=== PATIENT | male | born 1955 | race Caucasian/White ===

== ENCOUNTER → 2016-05-22 | Outpatient (CLI) | payer BC ==
[~2016-05-22] MED LIST: ASPI81TA21 PO; CHOL20005 PO; CLR10 PO; CRS20 PO; FINA5TAB PO; LOSA1TAB PO; METO25TA56 PO; NTRGSL/4 SL; NTRGSL/4 UT; PANT40TA PO; PRT40 PO
--- NOTE | 2016-05-22 10:29 | DIAGNOSTIC IMAGING REPORT ---
CHEST 2 VIEWS ROUTINE CLINICAL HISTORY: J20.9 Acute bronchitis with [id number] COMPARISON STUDY: 02/28/2016 FINDINGS: The cardiac and mediastinal contours are normal. There is no evidence of focal pulmonary consolidation. There is no evidence of failure. No pleural effusions are visualized.[ IMPRESSION: No active disease in the chest. Electronically signed by: Truman Roth M.D. 05/22/2016 10:27 AM Dictated Date/Time: 05/22/2016 10:22 AM
[2016-05-22 11:25] LABS: ALT/SGPT 43 U/L (12-78); AST/SGOT 29 U/L (15-37); BLOOD UREA NITROGEN 17 mg/dl (7-18); BUN/CREATININE RATIO 16.9 (10-20); CALCIUM 9.1 mg/dl (8.5-10.1); CARBON DIOXIDE 28 mmol/L (21-32); CHLORIDE 104 mmol/L (98-107); CHOLESTEROL 148 mg/dl (0-200); GLUCOSE 116 mg/dl (70-99); POTASSIUM 4.1 mmol/L (3.5-5.1); SODIUM 138 mmol/L (136-145); TRIGLYCERIDES 180 mg/dl (0-150); VERY LOW DENSITY LIPOPROT CALC 36 mg/dl
[2016-05-22 11:26] LABS: ALKALINE PHOSPHATASE 73 U/L (45-117); CHOLESTEROL/HDL RATIO 3.6; HDL CHOLESTEROL 41 mg/dl; LDL CHOLESTEROL CALCULATED 71 mg/dl
[2016-05-22 11:54] LABS: ESTIMATED AVERAGE GLUCOSE 123 mg/dl; HA1C FLAG Normal (Normal)
== END | disposition home or self-care (01) ==
LOC: C.RAD1850 10:08
PROVIDERS: ATTEND Family Medicine
DX: J20.9 Acute bronchitis, unspecified (principal); I10 Essential (primary) hypertension; E78.5 Hyperlipidemia, unspecified; R73.01 Impaired fasting glucose; E55.9 Vitamin D deficiency, unspecified

== ENCOUNTER → 2016-10-09 | Outpatient (CLI) | payer BC ==
[2016-10-09 11:57] LABS: BASO % 0.6 %; BASO ABS # 0.05 K/uL (0-0.2); COMPLETE YES; HEMATOCRIT 43.3 % (42-52); IG% 0.2 %; LYMPH ABS # 1.59 K/uL (1.2-3.4); MEAN CELL VOLUME 87.5 fL (80-100); MEAN CORPUSCULAR HEMOGLOBIN 29.9 pg (25-34); MEAN CORPUSCULAR HGB CONC 34.2 g/dl (32-36); MEAN PLATELET VOLUME 9.9 fL (7.4-10.4); MONO % 7.6 %; NEUT % 69.6 %; PLATELET COUNT 258 K/uL (130-400); RED BLOOD COUNT 4.95 M/uL (4.7-6.1); WHITE BLOOD COUNT 8.84 K/uL (4.8-10.8)
== END | disposition home or self-care (01) ==
LOC: C.LAB1850 11:04
PROVIDERS: ATTEND Family Medicine
DX: R22.30 Localized swelling, mass and lump, unspecified upper limb (principal)

== ENCOUNTER → 2016-10-12 | Outpatient (CLI) | payer BC ==
--- NOTE | 2016-10-12 08:13 | DIAGNOSTIC IMAGING REPORT ---
LEFT AXILLARY ULTRASOUND CLINICAL HISTORY: Left axillary palpable lump. COMPARISON STUDY: No previous studies for comparison. FINDINGS: Sonography of the left axilla revealed an ill-defined mixed echogenicity subcutaneous abnormality that measures 1.3 x 0.6 x 1.2 cm. This contained a 4 mm peripherally echogenic focus with shadowing consistent with calcification. No additional abnormalities were identified within the left axilla. IMPRESSION: 1.3 cm subcutaneous abnormality of the left axilla which contains a calcification which represents the palpable lump. This is not suggestive of a lipoma or lymph node. A benign etiology is favored but clinical follow-up to ensure stability is recommended. Electronically signed by: Jasvir Sandoval M.D. 10/12/2016 8:12 AM Dictated Date/Time: 10/12/2016 8:06 AM
== END | disposition home or self-care (01) ==
LOC: C.ULTR 07:38
PROVIDERS: ATTEND Family Medicine
DX: R22.30 Localized swelling, mass and lump, unspecified upper limb (principal)

== ENCOUNTER → 2016-11-21 | Outpatient (CLI) | payer BC ==
[2016-11-21 12:18] LABS: HEMATOCRIT 41.9 % (42-52); MEAN CELL VOLUME 86.7 fL (80-100); MEAN CORPUSCULAR HGB CONC 34.6 g/dl (32-36); MEAN PLATELET VOLUME 10.7 fL (7.4-10.4); PLATELET COUNT 172 K/uL (130-400); RED BLOOD COUNT 4.83 M/uL (4.7-6.1); WHITE BLOOD COUNT 9.61 K/uL (4.8-10.8)
[2016-11-21 12:41] LABS: ESTIMATED AVERAGE GLUCOSE 123 mg/dl; HA1C FLAG Normal (Normal)
[2016-11-21 13:01] LABS: ALT/SGPT 40 U/L (12-78); AST/SGOT 31 U/L (15-37); BLOOD UREA NITROGEN 13 mg/dl (7-18); CARBON DIOXIDE 27 mmol/L (21-32); CHLORIDE 106 mmol/L (98-107); CHOLESTEROL 128 mg/dl (0-200); CREATININE 0.96 mg/dl (0.60-1.40); GLUCOSE 94 mg/dl (70-99); POTASSIUM 4.4 mmol/L (3.5-5.1); SODIUM 138 mmol/L (136-145); TRIGLYCERIDES 98 mg/dl (0-150); VERY LOW DENSITY LIPOPROT CALC 20 mg/dl
[2016-11-21 13:07] LABS: ALKALINE PHOSPHATASE 65 U/L (45-117); CHOLESTEROL/HDL RATIO 3.7; HDL CHOLESTEROL 35 mg/dl; LDL CHOLESTEROL CALCULATED 73 mg/dl; PROSTATE SPECIFIC ANTIGEN 0.798 ng/ml (0.000-4.000)
== END | disposition home or self-care (01) ==
LOC: C.LAB1850 11:10
PROVIDERS: ATTEND Family Medicine
DX: I10 Essential (primary) hypertension (principal); E78.5 Hyperlipidemia, unspecified; I25.10 Atherosclerotic heart disease of native coronary artery without angina pectoris; R73.01 Impaired fasting glucose; E55.9 Vitamin D deficiency, unspecified; Z12.5 Encounter for screening for malignant neoplasm of prostate

== ENCOUNTER → 2016-12-06 | Day surgery (SDC) | payer BC ==
[2016-11-28 15:22] VITALS: Ht 177.8 cm; Wt 102.3 kg
[~2016-12-06] VITALS: Ht 177.8 cm; Wt 102.3 kg
[~2016-12-06] MED LIST changes: +ATROPINE SULFATE 0.1 MG/ML 5ML SYR IV PRN; +BUPIVACAINE/EPINEPHRINE 0.5% MPF 1:200,000 10 ML VIAL ONE; +CEFAZOLIN 2000 MG/60 ML D5W IV SCH; +DEXAMETHASONE SOD INJ 4 MG/ML VIAL ONE; +EpHEDrine SULFATE INJ 50 MG/ML AMP IV PRN; +FENTANYL CITRATE INJ 50 MCG/1 ML 2 ML VIAL IV PRN; +FENTANYL CITRATE INJ 50 MCG/1 ML 2 ML VIAL ONE; +HYDROCODONE/ACETAMOPHEN 5/325MG TAB PO PRN; +LACTATED RINGER'S 1000ML 1,000 ML IV SCH; +LIDOCAINE HCL 2% 2 ML VIAL (20MG/ML) ONE; +MIDAZOLAM HCL 1 MG/ML 2ML VIAL ONE; -NTRGSL/4 SL; +ONDANSETRON INJ 2 MG/ML 2 ML VIAL IV PRN; +ONDANSETRON INJ 2 MG/ML 2 ML VIAL ONE; +PROPOFOL IV EMULSION 10 MG/ML 20 ML VIAL IV ONE; -PRT40 PO; +SODIUM CHLORIDE 0.9% 1000ML 1,000 ML IV SCH
[2016-12-06 05:49] VITALS: BP 135/78; PULSE 52; TEMP 36.5; O2SAT 95
--- NOTE | 2016-12-06 06:56 | History & Physical Bridge Note ---
H&P Re-Evaluation Bridge Note: I have examined the patient, reviewed the History & Physical and in the interval since the performance of the History & Physical I have noted the following changes of clinical significance: No changes noted
--- NOTE | 2016-12-06 07:41 | Discharge Instructions ---
Discharge Instructions Date of Service Dec 06, 2016. Admission Reason for Admission: Left Axillary Lump Discharge Discharge Diagnosis / Problem: Left Axillary Lump Discharge Goals Goal(s): Decrease discomfort, Improve function Activity Recommendations Activity Limitations: as noted below Lifting Limitations: no more than 10 pounds Exercise/Sports Limitations: until after follow-up appointment May Resume Sexual Activity: after follow-up appointment Shower/Bathe: tomorrow . Instructions / Follow-Up Instructions / Follow-Up Please follow-up with Dr. Watson in the office in 1-2 weeks. Please call the office at [phone] to make an appointment if you do not have one already. Please call the office at [phone] with any questions or concerns. Current Hospital Diet Patient's current hospital diet: Discharge Diet Recommended Diet: Regular Diet Procedures Procedures Performed: Excision of Left Axilla Lump Pending Studies Studies pending at discharge: yes List of pending studies: Pathology report. Laboratory Results Hemoglobin A1c Test 11/21/16 11:11 Range/Units Estimated Average Glucose 123 mg/dl Hemoglobin A1c 5.9 H 4.5-5.6 % Lipid Panel Test 11/21/16 11:11 Range/Units Triglycerides Level 98 0-150 mg/dl Cholesterol Level 128 0-200 mg/dl HDL Cholesterol 35 mg/dl Cholesterol/HDL Ratio 3.7 LDL Cholesterol, Calculated 73 mg/dl Medical Emergencies . Who to Call and When: Medical Emergencies: If at any time you feel your situation is an emergency, please call 911 immediately. . Non-Emergent Contact Non-Emergency issues call your: Primary Care Provider, Surgeon Call Non-Emergent contact if: temperature is above 101.5, your pain is not controlled, wound has increased drainage, wound has increased redness . "Provider Documentation" section prepared by Maura Yousif. . VTE Core Measure Inpt VTE Proph given/why not?: SCD's
--- NOTE | 2016-12-06 07:52 | [facility] Operative Report ---
Operative Report Operative Date Dec 06, 2016. Pre-Operative Diagnosis Left Axillary Lump Post-Operative Diagnosis Left Axillary Lump Procedure(s) Performed Excision of Left Axilla Lump Surgeon Dr Watson Stacker Straightener Surgeon(s) Maura Yousif PA-C Estimated Blood Loss 5cc Findings 1.5 cm axillary nodule Specimens As per Surgeon A. Left Axillary Lump Anesthesia LMA Disposition Recovery Room / PACU Description of Procedure After informed consent was obtained the patient states the operating suite placed in supine position. After successful placement of a laryngeal mask airway left arm was extended shaved and sterilely prepped and draped in usual fashion. I Infiltrated some Marcaine to create a field block around the palpable nodule. An Elliptical incision was made around it was carried down through the soft tissue of the axilla using electrocautery. We were able to grasp the nodule and elevated and then using electrocautery, underneath to excise it in one piece. It was passed off to pathology. Any small bleeding points were controlled using electrocautery and then the wound was thoroughly irrigated. The was closed in several layers using 3-0 Vicryl for the deep layers and 4-0 Monocryl for the skin. Some additional Marcaine was injected at the end of the procedure. Benzoin and Steri-Strips were used as a dressing. The patient was awaken extubated and transferred recovery in stable condition I attest to the content of the Intraoperative Record and any orders documented therein. Any exceptions are noted below.
--- NOTE | 2016-12-06 08:14 | Anesthesiology Progress Note ---
Anesthesia Post Op Note Date & Time Dec 06, 2016 at 08:14 Vital Signs Pain Intensity: 0 Vital Signs Past 12 Hours Date Time Temp Pulse Resp B/P (MAP) Pulse Ox O2 Delivery O2 Flow Rate FiO2 12/06/16 08:08 53 18 95 12/06/16 08:08 36.5 54 18 12/06/16 08:06 132/89 12/06/16 08:05 123/90 12/06/16 08:03 55 19 12/06/16 08:03 53 19 93 12/06/16 07:58 55 21 94 12/06/16 07:58 56 21 12/06/16 07:57 151/91 12/06/16 07:53 56 22 12/06/16 07:53 57 22 94 12/06/16 07:51 130/74 12/06/16 07:48 53 17 99 12/06/16 07:48 51 17 12/06/16 07:46 139/77 12/06/16 07:43 37 20 98 12/06/16 07:43 41 20 12/06/16 07:41 122/77 12/06/16 07:38 48 14 97 12/06/16 07:38 47 14 12/06/16 07:36 118/71 12/06/16 07:34 116/67 12/06/16 07:33 49 14 12/06/16 07:33 36.6 49 16 116/67 95 Mask 10 12/06/16 07:33 49 14 94 12/06/16 05:49 36.5 52 18 135/78 (97) 95 Room Air Notes Mental Status: alert / awake / arousable, participated in evaluation Pt Amnestic to Procedure: Yes Nausea / Vomiting: adequately controlled Pain: adequately controlled Airway Patency, RR, SpO2: stable & adequate BP & HR: stable & adequate Hydration State: stable & adequate Anesthetic Complications: no major complications apparent
[2016-12-06 08:15] VITALS: BP 123/74; PULSE 51; TEMP 36.1; O2SAT 95
[2016-12-06 08:45] VITALS: BP 133/82; PULSE 54; TEMP 36.6; O2SAT 96
[2016-12-06 09:15] VITALS: BP 131/78; PULSE 54; TEMP 36.6; O2SAT 96
== END | disposition home or self-care (01) ==
LOC: C.ACU 05:12
PROVIDERS: ATTEND Surgery
DX: R22.30 Localized swelling, mass and lump, unspecified upper limb (principal); K21.9 Gastro-esophageal reflux disease without esophagitis; M19.90 Unspecified osteoarthritis, unspecified site; N40.0 Benign prostatic hyperplasia without lower urinary tract symptoms; I25.10 Atherosclerotic heart disease of native coronary artery without angina pectoris; Z95.818 Presence of other cardiac implants and grafts; I51.9 Heart disease, unspecified; E78.5 Hyperlipidemia, unspecified; I10 Essential (primary) hypertension; Z82.49 Family history of ischemic heart disease and other diseases of the circulatory system; Z87.891 Personal history of nicotine dependence; Z79.82 Long term (current) use of aspirin; I25.2 Old myocardial infarction; F41.9 Anxiety disorder, unspecified; K44.9 Diaphragmatic hernia without obstruction or gangrene

== ENCOUNTER → 2017-05-30 | Outpatient (CLI) | payer OTHER ==
[~2017-05-30] MED LIST changes: -ATROPINE SULFATE 0.1 MG/ML 5ML SYR IV PRN; -BUPIVACAINE/EPINEPHRINE 0.5% MPF 1:200,000 10 ML VIAL ONE; -CEFAZOLIN 2000 MG/60 ML D5W IV SCH; -DEXAMETHASONE SOD INJ 4 MG/ML VIAL ONE; -EpHEDrine SULFATE INJ 50 MG/ML AMP IV PRN; -FENTANYL CITRATE INJ 50 MCG/1 ML 2 ML VIAL IV PRN; -FENTANYL CITRATE INJ 50 MCG/1 ML 2 ML VIAL ONE; -HYDROCODONE/ACETAMOPHEN 5/325MG TAB PO PRN; -LACTATED RINGER'S 1000ML 1,000 ML IV SCH; -LIDOCAINE HCL 2% 2 ML VIAL (20MG/ML) ONE; -MIDAZOLAM HCL 1 MG/ML 2ML VIAL ONE; -ONDANSETRON INJ 2 MG/ML 2 ML VIAL IV PRN; -ONDANSETRON INJ 2 MG/ML 2 ML VIAL ONE; -PROPOFOL IV EMULSION 10 MG/ML 20 ML VIAL IV ONE; -SODIUM CHLORIDE 0.9% 1000ML 1,000 ML IV SCH
[2017-05-30 14:24] LABS: ALBUMIN 3.7 gm/dl (3.4-5.0); ALT/SGPT 39 U/L (12-78); AST/SGOT 27 U/L (15-37); BLOOD UREA NITROGEN 16 mg/dl (7-18); CALCIUM 8.9 mg/dl (8.5-10.1); CARBON DIOXIDE 25 mmol/L (21-32); CREATININE 1.03 mg/dl (0.60-1.40); GLUCOSE 101 mg/dl (70-99); POTASSIUM 4.3 mmol/L (3.5-5.1); SODIUM 136 mmol/L (136-145)
[2017-05-30 14:26] LABS: ALKALINE PHOSPHATASE 63 U/L (45-117); CHOLESTEROL 118 mg/dl (0-200); LDL CHOLESTEROL CALCULATED 58 mg/dl; TOTAL PROTEIN 7.7 gm/dl (6.4-8.2)
== END | disposition home or self-care (01) ==
LOC: C.LAB1850 11:56
PROVIDERS: ATTEND Family Medicine
DX: I10 Essential (primary) hypertension (principal); E78.5 Hyperlipidemia, unspecified; I25.10 Atherosclerotic heart disease of native coronary artery without angina pectoris; R73.01 Impaired fasting glucose; E55.9 Vitamin D deficiency, unspecified

== ENCOUNTER → 2017-06-25 | Outpatient (CLI) | payer OTHER ==
--- NOTE | 2017-06-25 10:17 | DIAGNOSTIC IMAGING REPORT ---
ORBIT RADIOGRAPHS 3 VIEWS HISTORY: pre-MRI screening. COMPARISON: Head CT May 09, 2012. FINDINGS: There are no radiopaque foreign bodies identified within the orbits. IMPRESSION: No radiopaque foreign bodies identified within the orbits. Electronically signed by: Jasvir Sandoval M.D. 06/25/2017 10:15 AM Dictated Date/Time: 06/25/2017 10:15 AM
--- NOTE | 2017-06-25 11:53 | DIAGNOSTIC IMAGING REPORT ---
MRI OF THE CERVICAL SPINE WITHOUT CONTRAST CLINICAL HISTORY: Left arm paresthesias. COMPARISON: None. TECHNIQUE: Utilizing a 1.5 Gloria magnet and dedicated coil, multiplanar, multiecho imaging of the cervical spine was performed without IV contrast. FINDINGS: Alignment of the cervical spine is anatomic. Vertebral body heights are maintained. There is no marrow edema or marrow placement. Cervical cord signal and caliber are normal. There is no intracanalicular mass or fluid collection. Visualized portions of the posterior fossa are unremarkable. Paravertebral soft tissues are unremarkable. C2-C3: The central canal and neural foramen are patent. C3-C4: There is minimal disc bulge. The central canal and neural foramen are patent. C4-C5: The central canal and neural foramen are patent. C5-C6: There is minimal posterior disc osteophyte complex. Central canal is patent. Mild narrowing of the left neural foramen and moderate narrowing of the right neural foramen. C6-C7: Small central disc protrusion is noted. There is minimal narrowing of the central canal. There is moderate narrowing of the left neural foramen and mild narrowing of the right neural foramen. C7-T1: Central canal and neural foramen are patent. IMPRESSION: 1. Mild multilevel degenerative disc disease and facet arthrosis. Small central disc protrusion at C6-C7 that results in minimal narrowing of the central canal. 2. Mild to moderate multilevel neural foraminal stenosis, as detailed above. 3. Normal cervical cord signal and caliber. Electronically signed by: Jasvir Sandoval M.D. 06/25/2017 11:52 AM Dictated Date/Time: 06/25/2017 11:45 AM
--- NOTE | 2017-06-25 11:57 | DIAGNOSTIC IMAGING REPORT ---
LUMBAR SPINE MRI HISTORY: M51.26 Herniated nucleus pulposus, L4-5M54.5 Low back painM54.16 TECHNIQUE: Multiplanar multisequence MRI of the lumbar spine was performed without the use of contrast. COMPARISON: Lumbar spine MRI 07/25/2009. FINDINGS: For the purpose of the report the L5-S1 disc space will be located on axial image 23 of 26. Alignment is intact. No fractures within the lumbar spine. Endplate signal abnormality at L4-L5 is consistent with long-standing degenerative change. There is severe disc space narrowing at L4-L5 which has slightly progressed. The remaining disc spaces are preserved. The conus terminates at the T12 level. Paraspinal soft tissues are unremarkable. L1-L2: No significant central canal or neural foraminal narrowing. L2-L3: No significant central canal or neural foraminal narrowing. L3-L4: No significant central canal or neural foraminal narrowing. L4-L5: Small broad-based posterior disc bulge with mild ligamentum and facet hypertrophy. This results in mild central canal and mild left-sided neural foraminal narrowing. There is a tiny left paracentral focal disc protrusion which has significantly decreased in size. Mild thickening/scarring along the left anterior thecal at the L4 level. This could be due to old postoperative change. L5-S1: No significant central canal or neural foraminal narrowing. IMPRESSION: 1. Near complete resolution of the central/left paracentral small focal disc protrusion at L4-L5. This could be due to prior postoperative change. There is only mild central canal and left neural foraminal narrowing at the L4-L5 level. 2. No significant central canal or neural foraminal narrowing at the remaining lumbar spine levels. Electronically signed by: Herbert Pyle M.D. 06/25/2017 11:56 AM Dictated Date/Time: 06/25/2017 11:43 AM
== END | disposition home or self-care (01) ==
LOC: C.MRI 09:39
PROVIDERS: ATTEND Family Medicine
DX: R20.2 Paresthesia of skin (principal); M51.26 Other intervertebral disc displacement, lumbar region; M54.5 Low back pain; M54.16 Radiculopathy, lumbar region

== ENCOUNTER → 2017-12-10 | Outpatient (CLI) | payer OTHER ==
[~2017-12-10] MED LIST changes: +ASPI-319 PO; -ASPI81TA21 PO
--- NOTE | 2017-12-10 15:19 | DIAGNOSTIC IMAGING REPORT ---
R SHOULDER MIN 2 VIEWS ROUTINE CLINICAL HISTORY: M25.511 pain COMPARISON: None. DISCUSSION: Mild degenerative change glenohumeral as well as acromioclavicular joints. No evidence for fracture or dislocation. No significant marginal erosions. There is no evidence for soft tissue swelling. IMPRESSION: Mild degenerative change. No acute process. The above report was generated using voice recognition software. It may contain grammatical, syntax or spelling errors. Electronically signed by: Arian Galvan M.D. 12/10/2017 3:17 PM Dictated Date/Time: 12/10/2017 3:17 PM
== END | disposition home or self-care (01) ==
LOC: C.RAD1850 14:33
PROVIDERS: ATTEND Family Medicine
DX: M25.511 Pain in right shoulder (principal)

== ENCOUNTER 2018-07-07 12:48 | Observation (INO) ==
[2018-07-07] MEDS ORDERED: ASPIRIN CHEW 324 MG PO STA (14:09)
[2018-07-07 14:16] LABS: Basophils # (auto) 0.05 K/uL (0-0.2); Basophils % (auto) 0.5 %; Eosinophils # (auto) 0.32 K/uL (0-0.5); Eosinophils % (auto) 3.2 %; Hemoglobin 15.2 g/dL (14.0-18.0); Immature Granulocytes # (auto) 0.04 K/uL (0.00-0.02); Immature Granulocytes % (auto) 0.4 %; Lymphocytes # (auto) 1.98 K/uL (1.2-3.4); Lymphocytes % (auto) 19.7 %; Mean Corpuscular Hgb Conc 35.3 g/dL (32-36); Mean Corpuscular Volume 87.4 fL (80-100); Mean Platelet Volume 9.6 fL (7.4-10.4); Monocytes # (auto) 0.82 K/uL (0.11-0.59); Monocytes % (auto) 8.2 %; Neutrophils # (auto) 6.82 K/uL (1.4-6.5); Platelet Count 252 K/uL (130-400); RDW Coefficient of Variation 13.5 % (11.5-14.5); RDW Standard Deviation 42.9 fL (36.4-46.3); Red Blood Count 4.92 M/uL (4.7-6.1); White Blood Count 10.03 K/uL (4.8-10.8)
[2018-07-07 14:32] LABS: BUN Creatinine Ratio 12.4 (10-20); Blood Urea Nitrogen 12 mg/dl (7-18); Calcium 9.1 mg/dl (8.5-10.1); Carbon Dioxide 28 mmol/L (21-32); Chloride 103 mmol/L (98-107); Creatinine Clr Calc Pharmacy 96.4 ml/min; Est GFR (African American) 99.6; Est GFR (Non-African American) 85.9; Glucose 92 mg/dl (70-99); Potassium 4.2 mmol/L (3.5-5.1); Sodium 136 mmol/L (136-145)
[2018-07-07 14:36] LABS: Troponin I < 0.015 ng/ml (0-0.045)
--- NOTE | 2018-07-07 15:24 | XRay Report ---
XR chest 2V routine CLINICAL HISTORY: Atypical chest pain COMPARISON STUDY: 02/28/2016 FINDINGS: The cardiac and mediastinal contours are normal. There is no evidence of focal pulmonary co nsolidation. There is no evidence of failure. No pleural effusions are visualized.[ IMPRESSION: No active disease in the chest. Electronically signed by: Truman Roth M.D. 07/07/2018 3:22 PM
--- NOTE | 2018-07-07 18:58 | Emergency Department Note ---
Entered by Britt Silva acting as a scribe for Vu Grant History of Present Illness General Chief complaint: Cardiac Assessment Stated complaint: PAIN IN SHOULDER - RADIATING TO CHEST -HX OF HEART Time Seen by Provider: 07/07/18 14:04 Source: patient History of Present Illness Onset (ago): day(s) (yesterday) Location: chest Radiation: other (left shoulder blade) Pain Consistency: + other (episode) Maximum Pain Intensity: 6 Quality: + other (sore, "nerve endings," "like someone punched him") Associated symptoms: + denies other symptoms (hemoptysis, diarrhea, leg swelling , LOC), + cough and + shortness of breath; no fever/chills (fever), no nausea/ vomiting and no syncope The patient is a 62 year old male who presents to the Emergency Room with complaints of an episode of chest pain starting yesterday. The patient states that yesterday he had a sore pain under his left axilla that felt like someone punched him. He states that today it started to move into his left anterior chest and radiated to his left shoulder blade. He reports that he decided to come to the ED for these symptoms because these are the exact same symptoms that he had when he had a massive heart attack 13 years ago. The patient complains of shortness of breath and a cough. The patient denies hemoptysis, fever, nausea, vomiting, diarrhea, leg swelling, loss of consciousness, syncope , recent travel, use of steroids/hormones, and a history of blood clots or cancer. The patient notes that his last cardiac workup was 5-10years ago. He states that he does take 81 mg of Aspirin a day and was a smoker 25 years ago. Home Medications Home Medications Medication Instructions Recorded Confirmed Type aspirin 81 mg PO QAM 07/07/18 07/07/18 History cholecalciferol (vitamin D3) 2,000 unit PO QAM 07/07/18 07/07/18 History [Vitamin D3] finasteride 5 mg PO HS 07/07/18 07/07/18 History loratadine 10 mg PO DAILY PRN 07/07/18 07/07/18 History losartan 25 mg PO QAM 07/07/18 07/07/18 History metoprolol tartrate 25 mg PO BID 07/07/18 07/07/18 History nitroglycerin [Nitrostat] 0.4 mg SUBLINGUAL UD 07/07/18 07/07/18 History rosuvastatin 20 mg PO Q2D 07/07/18 07/07/18 History Allergies Allergy/AdvReac Type Severity Reaction Status Date / Time alfuzosin Allergy Unknown SHORTNESS Unverified 07/07/18 14:56 OF BREATH niacin Allergy Unknown RED FLUSH Unverified 07/07/18 14:56 Past Med/Surg History Medical History HTN (hypertension) (Chronic) Hyperlipidemia (Chronic) Bronchitis (Acute) Dehydration (Acute) Hiatal hernia with GERD Hyponatremia (Acute) Pleurisy (Acute) Systemic inflammatory response syndrome (Acute 06/04/13) UTI (lower urinary tract infection) (Acute) Unstable angina Vomiting (Acute) History of heart attack Surgical History Hx of heart artery stent Family History Other No significant family history Social History marital status: Current Living Situation: Spouse current occupational status: retired Feels Safe at Home: Yes Smoking Status: Former smoker Preferred Language: [place] Review of Systems See HPI for pertinent positives & negatives. and A total of 10 systems reviewed and were otherwise negative Physical Exam Vital Signs Vital Signs - 24 hr 07/07/18 12:58 07/07/18 13:02 07/07/18 14:01 Temperature 36.6 C Temperature Source Oral Sepsis Recent Fever Within 48 Hours No Sepsis New/Unexplained Change in Mental Status No Sepsis Action Taken by Nursing No Action Required Pulse Rate 58 L 56 L Pulse Rate [Apical] Pulse Rate [Finger] Pulse Rate from SpO2 Sensor Pulse Rhythm Respiratory Rate 18 17 Respiratory Effort / Characteristics Non-Labored Spontaneous Non-Labored Spontaneous Respiratory Depth Normal Normal Respiratory Pattern Regular Blood Pressure 159/79 H 168/95 H Blood Pressure [Left Arm] Blood Pressure Mean 105 119 Blood Pressure Mean [Left Arm] Blood Pressure Position Sitting Pulse Oximetry 97 Oxygen Delivery Method Room Air Room Air 07/07/18 14:02 07/07/18 14:04 07/07/18 14:10 Temperature Temperature Source Sepsis Recent Fever Within 48 Hours Sepsis New/Unexplained Change in Mental Status Sepsis Action Taken by Nursing Pulse Rate 54 L 57 L Pulse Rate [Apical] Pulse Rate [Finger] 52 L Pulse Rate from SpO2 Sensor Pulse Rhythm Respiratory Rate 16 22 21 Respiratory Effort / Characteristics Non-Labored Respiratory Depth Normal Respiratory Pattern Blood Pressure Blood Pressure [Left Arm] 168/95 H Blood Pressure Mean Blood Pressure Mean [Left Arm] 119 Blood Pressure Position Pulse Oximetry 97 Oxygen Delivery Method Room Air 07/07/18 14:20 07/07/18 14:30 07/07/18 14:32 Temperature Temperature Source Sepsis Recent Fever Within 48 Hours Sepsis New/Unexplained Change in Mental Status Sepsis Action Taken by Nursing Pulse Rate 61 54 L 53 L Pulse Rate [Apical] Pulse Rate [Finger] Pulse Rate from SpO2 Sensor Pulse Rhythm Regular Respiratory Rate 25 H 19 Respiratory Effort / Characteristics Respiratory Depth Respiratory Pattern Blood Pressure Blood Pressure [Left Arm] Blood Pressure Mean Blood Pressure Mean [Left Arm] Blood Pressure Position Pulse Oximetry 97 Oxygen Delivery Method Room Air 07/07/18 14:40 07/07/18 14:50 07/07/18 15:00 Temperature Temperature Source Sepsis Recent Fever Within 48 Hours Sepsis New/Unexplained Change in Mental Status Sepsis Action Taken by Nursing Pulse Rate 52 L 51 L 48 L Pulse Rate [Apical] Pulse Rate [Finger] Pulse Rate from SpO2 Sensor Pulse Rhythm Respiratory Rate 17 21 17 Respiratory Effort / Characteristics Respiratory Depth Respiratory Pattern Blood Pressure Blood Pressure [Left Arm] Blood Pressure Mean Blood Pressure Mean [Left Arm] Blood Pressure Position Pulse Oximetry Oxygen Delivery Method 07/07/18 15:44 07/07/18 15:51 07/07/18 15:52 Temperature Temperature Source Sepsis Recent Fever Within 48 Hours Sepsis New/Unexplained Change in Mental Status Sepsis Action Taken by Nursing Pulse Rate 67 55 L Pulse Rate [Apical] 64 Pulse Rate [Finger] Pulse Rate from SpO2 Sensor 54 L 55 L Pulse Rhythm Respiratory Rate 27 H 20 19 Respiratory Effort / Characteristics Respiratory Depth Respiratory Pattern Blood Pressure 167/97 H Blood Pressure [Left Arm] 167/97 H Blood Pressure Mean 120 Blood Pressure Mean [Left Arm] 120 Blood Pressure Position Pulse Oximetry 95 96 96 Oxygen Delivery Method Room Air 07/07/18 16:00 07/07/18 16:01 07/07/18 16:30 Temperature Temperature Source Sepsis Recent Fever Within 48 Hours Sepsis New/Unexplained Change in Mental Status Sepsis Action Taken by Nursing Pulse Rate 54 L 53 L 56 L Pulse Rate [Apical] Pulse Rate [Finger] Pulse Rate from SpO2 Sensor 54 L 53 L 56 L Pulse Rhythm Respiratory Rate 17 19 23 Respiratory Effort / Characteristics Respiratory Depth Respiratory Pattern Blood Pressure 143/84 H Blood Pressure [Left Arm] Blood Pressure Mean 103 Blood Pressure Mean [Left Arm] Blood Pressure Position Pulse Oximetry 94 96 94 Oxygen Delivery Method 07/07/18 16:31 07/07/18 17:00 07/07/18 17:30 Temperature Temperature Source Sepsis Recent Fever Within 48 Hours Sepsis New/Unexplained Change in Mental Status Sepsis Action Taken by Nursing Pulse Rate 56 L 53 L Pulse Rate [Apical] Pulse Rate [Finger] Pulse Rate from SpO2 Sensor 56 L 53 L 52 L Pulse Rhythm Respiratory Rate 24 22 Respiratory Effort / Characteristics Respiratory Depth Respiratory Pattern Blood Pressure 151/86 H 173/91 H Blood Pressure [Left Arm] Blood Pressure Mean 107 118 Blood Pressure Mean [Left Arm] Blood Pressure Position Pulse Oximetry 94 95 95 Oxygen Delivery Method 07/07/18 18:00 Temperature Temperature Source Sepsis Recent Fever Within 48 Hours Sepsis New/Unexplained Change in Mental Status Sepsis Action Taken by Nursing Pulse Rate 49 L Pulse Rate [Apical] Pulse Rate [Finger] Pulse Rate from SpO2 Sensor 49 L Pulse Rhythm Respiratory Rate 20 Respiratory Effort / Characteristics Respiratory Depth Respiratory Pattern Blood Pressure Blood Pressure [Left Arm] Blood Pressure Mean Blood Pressure Mean [Left Arm] Blood Pressure Position Pulse Oximetry 93 Oxygen Delivery Method Physical Exam GENERAL: He is oriented to person, place, and time. He appears well-developed and well-nourished. He does not appear distressed. HENT: Exam performed. - Head: Normocephalic and atraumatic. - Right Ear: External ear normal. No mastoid tenderness. - Left Ear: External ear normal. No mastoid tenderness. - Mouth/Throat: The oropharynx is clear and moist. No trismus in the jaw. No dental abscesses or uvula swelling. No oropharyngeal exudate or tonsillar abscesses. EYES: Conjunctivae and EOM are normal. Pupils are equal, round, and reactive to light. Right eye exhibits no discharge. Left eye exhibits no discharge. No scleral icterus. NECK: Normal range of motion. Neck supple. No JVD present. No spinous process tenderness present. No carotid bruit present. No rigidity. No tracheal deviation and normal range of motion present. No Brudzinski's sign and no Kernig 's sign noted. CV: Normal rate, regular rhythm, normal heart sounds and intact distal pulses. There is no peripheral edema. Palpable radial pulses bue. PULM/CHEST: Effort normal and breath sounds normal. No respiratory distress. No stridor. He has no wheezes. He has no rales. - Chest Wall: He exhibits no tenderness. ABD: The abdomen is soft. Bowel sounds are normal. He has no distension. No mass is present. There is no tenderness. There is no rebound, no guarding, no Oden's sign and no tenderness at McBurney's point. Rovsig negative. MUSC/SKEL: Normal range of motion. There is no peripheral edema, tenderness or deformity. LYMPH: No cervical adenopathy. NEURO: He is alert and oriented to person, place, and time. He has normal strength. No cranial nerve deficit or sensory deficit. Coordination and gait normal. GCS eye subscore is 4. GCS verbal subscore is 5. GCS motor subscore is 6. Cerebellar tests wnl. SKIN: Skin is warm and dry. He is not diaphoretic. PSYCH: He has a normal mood and affect. Behavior is normal. Judgment and thought content normal. Course 1404: Past medical records reviewed. The patient was evaluated in room A3, and a complete history and physical examination were performed. 1601: I reevaluated the patient. His vitals are stable. Labs and imaging are within normal limits. His heart score is high. He was offered admission for observation or follow up in the office with cardiology. The patient elected for observation. I reviewed the patient's case with Dr. Liliya VERA Hospitalist. She will evaluate the patient for further management. Consultations Consultation #1: I reviewed the patient's case with Dr. Liliya VERA Hospitalist. She will evaluate the patient for further management. Time: 16:05 Administered Medications Discontinued Medications Aspirin (Aspirin) 324 mg PO NOW STA Stop: 07/07/18 14:10 Last Admin: 07/07/18 14:14 Dose: 324 mg Medical Decision Making Medical Records Attestation: I reviewed the patient's medical records. Home Medications Current Medication List: was personally reviewed by me Laboratory Data Attestation: I reviewed the patient's lab results. Result diagrams: 07/07/18 14:05 07/07/18 14:05 Lab Results 07/07/18 07/07/18 07/07/18 Range/Units 14:05 14:05 17:15 WBC 10.03 (4.8-10.8) K/uL RBC 4.92 (4.7-6.1) M/uL Hgb 15.2 (14.0-18.0) g/dL Hct 43.0 (42-52) % MCV 87.4 (80-100) fL MCH 30.9 (25-34) pg MCHC 35.3 (32-36) g/dL RDW Std Deviation 42.9 (36.4-46.3) fL RDW Coeff of Suad 13.5 (11.5-14.5) % Plt Count 252 (130-400) K/uL MPV 9.6 (7.4-10.4) fL Immature Gran % (Auto) 0.4 % Neut % (Auto) 68.0 % Lymph % (Auto) 19.7 % [place] % (Auto) 8.2 % Eos % (Auto) 3.2 % Baso % (Auto) 0.5 % Immature Gran # (Auto) 0.04 H (0.00-0.02) K/uL Neut # (Auto) 6.82 H (1.4-6.5) K/uL Lymph # (Auto) 1.98 (1.2-3.4) K/uL Grand # (Auto) 0.82 H (0.11-0.59) K/uL Eos # (Auto) 0.32 (0-0.5) K/uL Baso # (Auto) 0.05 (0-0.2) K/uL Sodium 136 (136-145) mmol/L Potassium 4.2 (3.5-5.1) mmol/L Chloride 103 (98-107) mmol/L Carbon Dioxide 28 (21-32) mmol/L Anion Gap 5.0 (3-11) BUN 12 (7-18) mg/dl Creatinine 0.94 (0.6-1.4) mg/dl Est Cr Clr Drug Dosing 96.4 ml/min Est GFR ( Amer) 99.6 Est GFR (Non-Af Amer) 85.9 BUN/Creatinine Ratio 12.4 (10-20) Glucose 92 (70-99) mg/dl Calcium 9.1 (8.5-10.1) mg/dl Troponin I < 0.015 < 0.015 (0-0.045) ng/ml Imaging Data Radiologist's Impression: Radiology results as stated below per my review and the radiologist's interpretation: XR chest 2V routine CLINICAL HISTORY: Atypical chest pain COMPARISON STUDY: 02/28/2016 FINDINGS: The cardiac and mediastinal contours are normal. There is no evidence of focal pulmonary consolidation. There is no evidence of failure. No pleural effusions are visualized.[ IMPRESSION: No active disease in the chest. Electronically signed by: Truman Roth M.D. 07/07/2018 3:22 PM ECG Data Attestation: I personally reviewed and interpreted this ECG as follows: Indication: chest pain Rate (beats per minute): 56 Rhythm: sinus rhythm Findings: + other (AR, QRS, and QT-c intervals are within normal limits); no ST depression and no ST elevation Blood Pressure Blood Pressure Findings: Elevated blood pressure Blood Pressure Disposition: further management by hospitalist MDM Narrative vitals are stable. Labs and imaging are within normal limits. His heart score is high. He was offered admission for observation or follow up in the office with cardiology. The patient elected for observation. I reviewed the patient's case with Dr. Liliya HUDDLESTON Hospitalist. She will evaluate the patient for further management. Impression & Plan Chest pain Discharge Plan Visit Data Chief Complaint: Cardiac Assessment Stated Complaint: PAIN IN SHOULDER - RADIATING TO CHEST -HX OF HEART ED Provider: Vu Grant Discharge Problem: Chest pain Patient Disposition: Being Evaluated by Hospitalist Discharge Instructions Interventions: ED Discharge Assessment Last Done: 07/07/18 18:30 The scribe's documentation has been prepared under my direction and personally reviewed by me in its entirety. I confirm that the note above accurately reflects all work, treatment, procedures, and medical decision making performed by me.
[2018-07-07] MEDS ORDERED: NITROGLYCERIN SL 0.4 MG/TAB TAB SL SCH (19:03)
[2018-07-07] MEDS ORDERED: ACETAMINOPHEN 325 MG TAB PO PRN (19:03)
[2018-07-07] MEDS ORDERED: ONDANSETRON INJ 2 MG/ML 2 ML VIAL IV PRN (19:03)
[2018-07-07 20:19] LABS: Prothrombin Time 10.3 Seconds (9.0-12.0)
[2018-07-07 20:35] LABS: Magnesium 2.1 mg/dl (1.8-2.4); Phosphorus 3.8 mg/dl (2.5-4.9); Troponin I < 0.015 ng/ml (0-0.045)
[2018-07-07] MEDS: METOPROLOL TARTRATE 25 MG TAB PO SCH (20:48)
[2018-07-07] MEDS ORDERED: ENOXAPARIN INJ 40 MG/0.4 ML SYR SQ SCH (21:00)
[2018-07-07] MEDS ORDERED: FINASTERIDE 5 MG TAB PO SCH (21:00)
--- NOTE | 2018-07-07 21:02 | History & Physical Report ---
Date of Service July 07, 2018 Assessment & Plan (1) Chest pain: Patient with two days of axillary and back discomfort. Pain description seems rather atypical for ACS, however, patient presented with similar symptoms with his prior KS which is somewhat concerning. Troponin and EKG are unremarkable at this time. Patient is afebrile, hemodynamically stable, in no distress. -Observation with telemetry -Trend troponin x 3 sets -Check echocardiogram -Continue ASA 81mg po daily -Continue Crestor 20mg po daily -Continue Metoprolol 25mg po BID -Continue Losartan 25mg po daily -Nitro PRN -Cardiology consultation - appreciate assistance with this case (2) CAD (coronary artery disease): Known CAD s/p WILIAN to LAD. -Plan as above -Continue ASA, Statin, BB, ARB -Cardiology consultatiton (3) HTN (hypertension): Blood pressure mildly elevated at present -Continue home medications for now, may need to adjut medications if he remains poorly controlled (4) Hyperlipidemia: Chronic -Continue Crestor F/E/N - Heplock. Electrolytes within normal limits. Heart healthy diet as tolerated. NPO after midnight for possible procedure in AM Ppx - SCDs to bilateral LE Code - Full per discussion with patient Dispo - Telemetry History of Present Illness Chief Complaint: chest pain Primary Care Provider: Debbie Carmona DO Patient is a 62yo male with history of HTN, HLP, GERD, CAD s/p WILIAN to the LAD in June 2005 presenting with chest pain. Patient states that he shoveled snow on 07/05/18. Hours after shoveling he was shopping with his when he developed pain in the left armpit that radiated to his shoulder and scapula. He also reported tingling sensation in his forearm and fingertips of his left hand. He denies nausea, vomiting, diaphoresis or dizziness. He did, however, have mild shortness of breath. He descries the pain in his axilla as a mild soreness, constant, 4/10 in severity. Pain in his shoulder is more severe, 7/ 10 in severity. Pain is non-positional, non-exertional, non-pleuritic. Pain is similar to what he felt prior to his KS in 2005. Patient's cardiac history is significant for an anteroapical KS in June 2005 s/p WILIAN to LAD. He had a cardiac catheterization May 2006 which revealed a patent stent as well as 50% D1 stenosis and 20% OM1 stenosis. His proximal RCA was completely occluded with excellent collaterals. He has been on medical management. He was following with Dr. Fatima in the past but now primarily follows with his PCP. ER Course: ASA 324mg Allergies Allergy/AdvReac Type Severity Reaction Status Date / Time alfuzosin Allergy Unknown SHORTNESS Unverified 07/07/18 14:56 OF BREATH niacin Allergy Unknown RED FLUSH Unverified 07/07/18 14:56 Home Medications Home Medications Medication Instructions Recorded Confirmed Type aspirin 81 mg PO QAM 07/07/18 07/07/18 History cholecalciferol (vitamin D3) 2,000 unit PO QAM 07/07/18 07/07/18 History [Vitamin D3] finasteride 5 mg PO HS 07/07/18 07/07/18 History loratadine 10 mg PO DAILY PRN 07/07/18 07/07/18 History losartan 25 mg PO QAM 07/07/18 07/07/18 History metoprolol tartrate 25 mg PO BID 07/07/18 07/07/18 History nitroglycerin [Nitrostat] 0.4 mg SUBLINGUAL UD 07/07/18 07/07/18 History rosuvastatin 20 mg PO Q2D 07/07/18 07/07/18 History Past Med/Surg History Medical History HTN (hypertension) (Chronic) Hyperlipidemia (Chronic) Bronchitis (Acute) Dehydration (Acute) Hiatal hernia with GERD Hyponatremia (Acute) Pleurisy (Acute) Systemic inflammatory response syndrome (Acute 06/04/13) UTI (lower urinary tract infection) (Acute) Unstable angina CAD (coronary artery disease) History of heart attack Surgical History History of axillary surgery Hx of heart artery stent Family History Other No significant family history Social History marital status: Current Living Situation: Spouse current occupational status: retired Other Information That Helps Us Care for You: No Feels Safe at Home: Yes Safety Concerns: Feels Safe At This Time Smoking Status: Former smoker Do You Dip or Chew Tobacco: No Smoking End Date: 20 years ago Second Hand Exposure: No Tobacco Cessation Education Requested by Patient: No Hx Alcohol Use: Yes Alcohol type: beer and wine Alcohol Intake Frequency: holidays/special occasions only Hx Substance Use: No Beliefs That Will Affect Care: None Preferred Language: Azeri Communication Ability: Effective Clinical Faculty Required: No Review of Systems All systems reviewed & are unremarkable except as noted in HPI & below Physical Exam 2 Vital Signs (Past 24 Hours): Last Vital Signs Temp 36.5 C 07/07/18 20:00 Pulse 52 L 07/07/18 20:00 Resp 16 07/07/18 20:00 BP 159/90 H 07/07/18 20:00 Pulse Ox 97 07/07/18 20:00 Physical Exam: General: patient resting comfortably, NAD, non-toxic in appearance, AA&O x 4 Skin: warm, dry, intact, no rashes or lesions HEENT: NC/AT, PERRL, EOMI, anicteric sclera, conjunctiva without injection, external ear normal to inspection and nontender, nares patent, moist mucus membranes, dentition intact, no oropharyngeal lesions, neck supple, trachea midline, no LAD, no thyromegaly, no JVD Heart: +S1/S2, regular, bradycardic, no m/r/g Lungs: equal air entry bilaterally, no rales/rhonchi/wheezes Abd: +BS, soft, NT/ND, no masses/organomegaly/ascites Ext: warm, 2+ pulses in UE/LE bilaterally, no clubbing/cyanosis or edema Neuro: nonfocal, patient AA&O x 4, speech intact, no facial droop, moving all extremities on command with equal strength 5/5 Results & Data Laboratory Results Lab Results 07/07/18 07/07/18 07/07/18 Range/Units 14:05 14:05 17:15 WBC 10.03 (4.8-10.8) K/uL RBC 4.92 (4.7-6.1) M/uL Hgb 15.2 (14.0-18.0) g/dL Hct 43.0 (42-52) % MCV 87.4 (80-100) fL MCH 30.9 (25-34) pg MCHC 35.3 (32-36) g/dL RDW Std Deviation 42.9 (36.4-46.3) fL RDW Coeff of Suad 13.5 (11.5-14.5) % Plt Count 252 (130-400) K/uL MPV 9.6 (7.4-10.4) fL Immature Gran % (Auto) 0.4 % Neut % (Auto) 68.0 % Lymph % (Auto) 19.7 % [place] % (Auto) 8.2 % Eos % (Auto) 3.2 % Baso % (Auto) 0.5 % Immature Gran # (Auto) 0.04 H (0.00-0.02) K/uL Neut # (Auto) 6.82 H (1.4-6.5) K/uL Lymph # (Auto) 1.98 (1.2-3.4) K/uL [place] # (Auto) 0.82 H (0.11-0.59) K/uL Eos # (Auto) 0.32 (0-0.5) K/uL Baso # (Auto) 0.05 (0-0.2) K/uL PT (9.0-12.0) Seconds INR (0.9-1.1) Sodium 136 (136-145) mmol/L Potassium 4.2 (3.5-5.1) mmol/L Chloride 103 (98-107) mmol/L Carbon Dioxide 28 (21-32) mmol/L Anion Gap 5.0 (3-11) BUN 12 (7-18) mg/dl Creatinine 0.94 (0.6-1.4) mg/dl Est Cr Clr Drug Dosing 96.4 ml/min Est GFR ( Amer) 99.6 Est GFR (Non-Af Amer) 85.9 BUN/Creatinine Ratio 12.4 (10-20) Glucose 92 (70-99) mg/dl Calcium 9.1 (8.5-10.1) mg/dl Phosphorus (2.5-4.9) mg/dl Magnesium (1.8-2.4) mg/dl Troponin I < 0.015 < 0.015 (0-0.045) ng/ml 07/07/18 07/07/18 Range/Units 19:50 19:50 WBC (4.8-10.8) K/uL RBC (4.7-6.1) M/uL Hgb (14.0-18.0) g/dL Hct (42-52) % MCV (80-100) fL MCH (25-34) pg MCHC (32-36) g/dL RDW Std Deviation (36.4-46.3) fL RDW Coeff of Suad (11.5-14.5) % Plt Count (130-400) K/uL MPV (7.4-10.4) fL Immature Gran % (Auto) % Neut % (Auto) % Lymph % (Auto) % [place] % (Auto) % Eos % (Auto) % Baso % (Auto) % Immature Gran # (Auto) (0.00-0.02) K/uL Neut # (Auto) (1.4-6.5) K/uL Lymph # (Auto) (1.2-3.4) K/uL [place] # (Auto) (0.11-0.59) K/uL Eos # (Auto) (0-0.5) K/uL Baso # (Auto) (0-0.2) K/uL PT 10.3 (9.0-12.0) Seconds INR 1.0 (0.9-1.1) Sodium (136-145) mmol/L Potassium (3.5-5.1) mmol/L Chloride (98-107) mmol/L Carbon Dioxide (21-32) mmol/L Anion Gap (3-11) BUN (7-18) mg/dl Creatinine (0.6-1.4) mg/dl Est Cr Clr Drug Dosing ml/min Est GFR ( Amer) Est GFR (Non-Af Amer) BUN/Creatinine Ratio (10-20) Glucose (70-99) mg/dl Calcium (8.5-10.1) mg/dl Phosphorus 3.8 (2.5-4.9) mg/dl Magnesium 2.1 (1.8-2.4) mg/dl Troponin I < 0.015 (0-0.045) ng/ml Diagnostic Findings XR chest 2V routine CLINICAL HISTORY: Atypical chest pain COMPARISON STUDY: 02/28/2016 FINDINGS: The cardiac and mediastinal contours are normal. There is no evidence of focal pulmonary consolidation. There is no evidence of failure. No pleural effusions are visualized.[ IMPRESSION: No active disease in the chest. Electronically signed by: Truman Roth M.D. 07/07/2018 3:22 PM Dictated: 07/07/18 152 Transcribed: 07/07/18 152 ECG Additional Comments: The study reveals sinus bradycardia at 52bpm, normal axis, WU=046, QRS=92, MWo=676, no evidence of acute ischemia Code Status & VTE Plan Code Status Full VTE Prophylaxis Plan VTE Prophylaxis will be ordered: Yes Critical Care Time Critical Care Time: No _ (1) Chest pain Chest pain type: unspecified Ischemic chest pain type: Qualified Code(s): R07.9 - Chest pain, unspecified (2) CAD (coronary artery disease) Coronary Disease-Associated Artery/Lesion type: [place] artery [place] vs. transplanted heart: [place] heart Associated angina: without angina Qualified Code(s): I25.10 - Atherosclerotic heart disease of [place] coronary artery without angina pectoris (3) HTN (hypertension) Hypertension type: essential hypertension Qualified Code(s): I10 - Essential (primary) hypertension (4) Hyperlipidemia Hyperlipidemia type: unspecified Qualified Code(s): E78.5 - Hyperlipidemia, unspecified
[2018-07-08 06:21] LABS: Basophils # (auto) 0.04 K/uL (0-0.2); Basophils % (auto) 0.4 %; Eosinophils # (auto) 0.38 K/uL (0-0.5); Hematocrit (blood only) 41.5 % (42-52); Hemoglobin 14.4 g/dL (14.0-18.0); Immature Granulocytes # (auto) 0.03 K/uL (0.00-0.02); Immature Granulocytes % (auto) 0.3 %; Lymphocytes # (auto) 2.21 K/uL (1.2-3.4); Lymphocytes % (auto) 23.2 %; Mean Corpuscular Hgb Conc 34.7 g/dL (32-36); Mean Corpuscular Volume 88.7 fL (80-100); Mean Platelet Volume 9.6 fL (7.4-10.4); Monocytes # (auto) 0.77 K/uL (0.11-0.59); Monocytes % (auto) 8.1 %; Neutrophils # (auto) 6.08 K/uL (1.4-6.5); Platelet Count 202 K/uL (130-400); RDW Coefficient of Variation 13.6 % (11.5-14.5); RDW Standard Deviation 43.9 fL (36.4-46.3); Red Blood Count 4.68 M/uL (4.7-6.1); White Blood Count 9.51 K/uL (4.8-10.8)
[2018-07-08 06:50] LABS: BUN Creatinine Ratio 16.5 (10-20); Blood Urea Nitrogen 14 mg/dl (7-18); Calcium 8.8 mg/dl (8.5-10.1); Carbon Dioxide 27 mmol/L (21-32); Chloride 104 mmol/L (98-107); Creatinine Clr Calc Pharmacy 101.8 ml/min; Est GFR (Non-African American) 91.4; Glucose 118 mg/dl (70-99); Potassium 3.8 mmol/L (3.5-5.1); Sodium 137 mmol/L (136-145)
[2018-07-08 06:54] LABS: Troponin I < 0.015 ng/ml (0-0.045)
[2018-07-08] MEDS ORDERED: PERFLUTREN LIPID MICROSPHERE (DEFINITY) IV ONE (07:50)
[2018-07-08] MEDS ORDERED: LOSARTAN POTASSIUM 25 MG TAB PO SCH (09:00)
[2018-07-08] MEDS ORDERED: ROSUVASTATIN CALCIUM 20 MG TAB PO SCH ×3 (09:00→21:00)
[2018-07-08] MEDS ORDERED: ASPIRIN 81 MG ECTAB PO SCH (09:00)
--- NOTE | 2018-07-08 09:00 | Cardiology Consultation ---
Date of Consultation July 08, 2018 Assessment & Plan (1) CAD (coronary artery disease): (2) Chest pain: (3) HTN (hypertension): (4) Hyperlipidemia: Discussed with Dr. Fatima. Patient has a history of CAD with acute MD s/p LAD PCI in 2005. He also had evidence of50% D1 stenosis,20% OM1 stenosis and proximal RCA occlusion with collaterals on repeat cath in 2006. He was admitted with atypical chest pain. His symptoms have persisted greater than 48 hours with undetectable troponins a nd no EKG changes. His echo demonstrates normal LV function and no new wall motion abnormalities. His pain is reproducible on exam. It is unlikely his symptoms represent ACS and may be due to a musculoskeletal cause. Recommend stress echo to rule out cardiac ischemia. Continue medical therapy with aspirin, statin and beta lora. History of Present Illness Reason for Consultation: Chest pain Attending Physician: Jessica Ozuna DO History of Present Illness Mr. Bean is a 62 year old male with a medical history significant for CAD (hx of anterior wall MD and LAD stent June 2005), dyslipidemia, hypertension. His cardiac history dates back to 2005 when he presented with an acute anterior wall myocardial infarction. He underwent PCI with WILIAN placement to the LAD. In 2006 he underwent repeat catheterization which revealed patent LAD stent. He also had 50% D1 stenosis and a 20% OM1 stenosis. His proximal right coronary was completely occluded, but he had distal collaterals. He was admitted on 07/07/18 with chest/shoulder pain. He reports that his symptoms started 2 days prior while he was furniture shopping. He gradually developed a sensation of tightness and aching near his left breast and axilla. The pain was constant in nature with no alleviating or exacerbating factors. Over the next day the pain moved to his left shoulder blade and felt like a "bruise." He also had some "electrical shocks" in his left chest and parasthesias in his left axillary area and left arm. No associated nausea, diaphoresis or shortness of breath. His symptoms are different than his prior MD aside from pain in his left shoulder which concerned him. His pain has improved overall but has not resolved completely. He does note that palpatation of his chest/shoulder does reproduce his pain. Of note he was shoveling snow for about one hour the day prior to developing his symptoms. He is physically active cutting wood, yardwork and home improvement projects without any exertional chest pain or limiting dyspnea. He does note an overall decrease in his energy level but not exercise tolerance over the past 6 months. No lightheadedness, near syncope or syncope. ROS: 10 point ROS otherwise negative unless stated in HPI. Social Hx: , lives with . No children. Retired. History of smoking, quit 20 years ago. No alcohol or drug use. Allergies Allergy/AdvReac Type Severity Reaction Status Date / Time alfuzosin Allergy Unknown SHORTNESS Unverified 07/07/18 14:56 OF BREATH niacin Allergy Unknown RED FLUSH Unverified 07/07/18 14:56 Home Medications Home Medications Medication Instructions Recorded Confirmed Type aspirin 81 mg PO QAM 07/07/18 07/07/18 History cholecalciferol (vitamin D3) 2,000 unit PO QAM 07/07/18 07/07/18 History [Vitamin D3] finasteride 5 mg PO HS 07/07/18 07/07/18 History loratadine 10 mg PO DAILY PRN 07/07/18 07/07/18 History losartan 25 mg PO QAM 07/07/18 07/07/18 History metoprolol tartrate 25 mg PO BID 07/07/18 07/07/18 History nitroglycerin [Nitrostat] 0.4 mg SUBLINGUAL UD 07/07/18 07/07/18 History rosuvastatin 20 mg PO Q2D 07/07/18 07/07/18 History Patient History Medical History HTN (hypertension) (Chronic) Hyperlipidemia (Chronic) Bronchitis (Acute) Dehydration (Acute) Hiatal hernia with GERD Hyponatremia (Acute) Pleurisy (Acute) Systemic inflammatory response syndrome (Acute 06/04/13) UTI (lower urinary tract infection) (Acute) Unstable angina CAD (coronary artery disease) History of heart attack Surgical History History of axillary surgery Hx of heart artery stent Family History Other No significant family history Social History Preferred Language: Welsh Beliefs That Will Affect Care: None marital status: Current Living Situation: Spouse current occupational status: retired Other Information That Helps Us Care for You: No Feels Safe at Home: Yes Safety Concerns: Feels Safe At This Time Smoking Status: Former smoker Hx Alcohol Use: Yes Hx Substance Use: No Physical Exam Vital Signs (Past 24 Hours): Last Vital Signs Temp 36.6 C 07/08/18 07:03 Pulse 57 L 07/08/18 07:03 Resp 18 07/08/18 07:03 BP 136/81 07/08/18 07:03 Pulse Ox 91 07/08/18 07:03 Physical Exam: General: No acute distress, comfortable. HEENT: Head is normal. PERRLA. EOMI. Sclerae anicteric. Ears, nose and throat unremarkable. Mucous membranes moist. Neck: Normal carotid upstrokes, no bruits. No appreciable JVD. Lungs: Clear to auscultation bilaterally without rales, rhonchi or wheezes. Cardiac: Regular rate and rhythm. S1-S2 normal. No appreciable murmur, gallop or rub. Left chest and shoulder tender to palpation. Abdomen: Soft and nontender. Bowel sounds normal. No mass or organomegaly. No abdominal bruit. Extremities/vascular: Well perfused. No peripheral edema. Radial, DP and PT pulses 2+ bilaterally Skin: No rash or abnormal lesions. Normal turgor. Neurologic: Nonfocal Psychiatric: Affect appropriate. Alert and oriented. Results & Data Laboratory Results Laboratory Results - last 24 hr 07/07/18 07/07/18 07/07/18 14:05 14:05 17:15 WBC 10.03 RBC 4.92 Hgb 15.2 Hct 43.0 MCV 87.4 MCH 30.9 MCHC 35.3 RDW Std Deviation 42.9 RDW Coeff of Suad 13.5 Plt Count 252 MPV 9.6 Immature Gran % (Auto) 0.4 Neut % (Auto) 68.0 Lymph % (Auto) 19.7 Valley % (Auto) 8.2 Eos % (Auto) 3.2 Baso % (Auto) 0.5 Immature Gran # (Auto) 0.04 H Neut # (Auto) 6.82 H Lymph # (Auto) 1.98 Valley # (Auto) 0.82 H Eos # (Auto) 0.32 Baso # (Auto) 0.05 PT INR Sodium 136 Potassium 4.2 Chloride 103 Carbon Dioxide 28 Anion Gap 5.0 BUN 12 Creatinine 0.94 Est Cr Clr Drug Dosing 96.4 Est GFR ( Amer) 99.6 Est GFR (Non-Af Amer) 85.9 BUN/Creatinine Ratio 12.4 Glucose 92 Calcium 9.1 Phosphorus Magnesium Troponin I < 0.015 < 0.015 07/07/18 07/07/18 07/08/18 19:50 19:50 05:55 WBC RBC Hgb Hct MCV MCH MCHC RDW Std Deviation RDW Coeff of Suad Plt Count MPV Immature Gran % (Auto) Neut % (Auto) Lymph % (Auto) Valley % (Auto) Eos % (Auto) Baso % (Auto) Immature Gran # (Auto) Neut # (Auto) Lymph # (Auto) Valley # (Auto) Eos # (Auto) Baso # (Auto) PT 10.3 INR 1.0 Sodium 137 Potassium 3.8 Chloride 104 Carbon Dioxide 27 Anion Gap 6.0 BUN 14 Creatinine 0.88 Est Cr Clr Drug Dosing 101.8 Est GFR ( Amer) 106.0 Est GFR (Non-Af Amer) 91.4 BUN/Creatinine Ratio 16.5 Glucose 118 H Calcium 8.8 Phosphorus 3.8 Magnesium 2.1 Troponin I < 0.015 < 0.015 07/08/18 05:55 WBC 9.51 RBC 4.68 L Hgb 14.4 Hct 41.5 L MCV 88.7 MCH 30.8 MCHC 34.7 RDW Std Deviation 43.9 RDW Coeff of Suad 13.6 Plt Count 202 MPV 9.6 Immature Gran % (Auto) 0.3 Neut % (Auto) 64.0 Lymph % (Auto) 23.2 Valley % (Auto) 8.1 Eos % (Auto) 4.0 Baso % (Auto) 0.4 Immature Gran # (Auto) 0.03 H Neut # (Auto) 6.08 Lymph # (Auto) 2.21 Valley # (Auto) 0.77 H Eos # (Auto) 0.38 Baso # (Auto) 0.04 PT INR Sodium Potassium Chloride Carbon Dioxide Anion Gap BUN Creatinine Est Cr Clr Drug Dosing Est GFR ( Amer) Est GFR (Non-Af Amer) BUN/Creatinine Ratio Glucose Calcium Phosphorus Magnesium Troponin I (1) CAD (coronary artery disease) Associated angina: without angina Coronary Disease-Associated Artery/Lesion type: [place] artery [place] vs. transplanted heart: [place] heart Qualified Code(s): I25.10 - Atherosclerotic heart disease of [place] coronary artery without angina pectoris (2) Hyperlipidemia Hyperlipidemia type: unspecified Qualified Code(s): E78.5 - Hyperlipidemia, unspecified (3) Chest pain Chest pain type: unspecified Qualified Code(s): R07.9 - Chest pain, unspecified (4) HTN (hypertension) Hypertension type: essential hypertension Qualified Code(s): I10 - Essential (primary) hypertension
[2018-07-08] MEDS: METOPROLOL TARTRATE 25 MG TAB PO SCH (09:07)
[2018-07-08] MEDS ORDERED: Nursing to Pharmacy Communication ONE (10:03)
--- NOTE | 2018-07-08 15:18 | Discharge Summary ---
Date of Service July 08, 2018 Admission HPI Per Admitting Provider Patient is a 62yo male with history of HTN, HLP, GERD, CAD s/p WILIAN to the LAD in June 2005 presenting with chest pain. Patient states that he shoveled snow on 07/05/18. Hours after shoveling he was shopping with his when he developed pain in the left armpit that radiated to his shoulder and scapula. He also reported tingling sensation in his forearm and fingertips of his left hand. He denies nausea, vomiting, diaphoresis or dizziness. He did, however, have mild shortness of breath. He descries the pain in his axilla as a mild soreness, constant, 4/10 in severity. Pain in his shoulder is more severe, 7/ 10 in severity. Pain is non-positional, non-exertional, non-pleuritic. Pain is similar to what he felt prior to his NE in 2005. Patient's cardiac history is significant for an anteroapical NE in June 2005 s/p WILIAN to LAD. He had a cardiac catheterization May 2006 which revealed a patent stent as well as 50% D1 stenosis and 20% OM1 stenosis. His proximal RCA was completely occluded with excellent collaterals. He has been on medical management. He was following with Dr. Fatima in the past but now primarily follows with his PCP. ER Course: ASA 324mg Principal Diagnosis Musculoskeletal chest pain Discharge Exam Constitutional WD/WN, vitals as above Respiratory normal respiratory effort, lungs clear to auscultation Cardiovascular RRR, no murmur, no edema Gastrointestinal (Abdomen) normal bowel sounds, soft, nontender, no hepatosplenomegaly Musculoskeletal no cyanosis or clubbing, extremities motor strength 5/5 Skin no rashes, warm and dry Neurologic moves all extremities and awake Psychiatric A+Ox3, euthymic affect Discharge Data Allergies Allergy/AdvReac Type Severity Reaction Status Date / Time alfuzosin Allergy Unknown SHORTNESS Unverified 07/07/18 14:56 OF BREATH niacin Allergy Unknown RED FLUSH Unverified 07/07/18 14:56 Consultations 07/07/18 15:55 ED Decision to Admit Stat 07/07/18 20:56 Consult Cardiology Routine Hospital Course (1) Chest pain: Patient with two days of axillary and back discomfort. Pain description seems rather atypical for ACS, however, patient presented with similar symptoms with his prior NE which is somewhat concerning. -Trops negative x 3 sets -Echo showed baseline wall motion abnormalities - per cardiology, these are improved from 2012. Stress test did not show any signs of inducible ischemia. No further cardiac workup per cardiology -Continue ASA 81mg po daily -Continue Crestor 20mg po daily -Continue Metoprolol 25mg po BID -Continue Losartan 25mg po daily -Nitro PRN - left hand numbness around palm distal to musculoskeletal pain in chest/ shoulder that started after shoveling this weekend - sent for Xray neck which showed no acute injury, did show mild degenerative changes at C5-6 and C6-7. Recommend outpatient follow up (2) CAD (coronary artery disease): Known CAD s/p WILIAN to LAD. -Plan as above -Continue ASA, Statin, BB, ARB -Cardiology consultation (3) HTN (hypertension): Stable, continue home bp medications as above (4) Hyperlipidemia: Chronic -Continue Crestor Total Time Total Time Spent Total Time Spent (In Minutes): greater than 30 minutes Discharge Plan Discharge Items Patient Disposition: Home - Self-Care Reason For Visit: CHEST PAIN Discharge Diagnosis: Musculoskeletal chest pain Discharge Goals: Diagnostic testing Activity: Resume your previous activity Non-emergency contact: Primary Care Provider Call non-emergency contact if: you have any medication questions Diet: Heart Healthy Addtl Provider Instructions: Your stress test did not show any changes concerning for ischemia (lack of oxygen due to poor blood flow) to your heart. Your lab work also did not give any indication of injury to your heart. Cardiology does not feel your pain is cardiac in nature. Please follow up with orthopedics concerning your neck pain. I would give them a call before you leave for your vacation this weekend and see if they would like you to see you before you go. Your neck Xray did not show any acute injury. Prescriptions: Continue aspirin 81 mg Tablet,Delayed Release (Dr/Ec) 81 mg PO QAM RF: 0 losartan 25 mg tablet 25 mg PO QAM RF: 0 nitroglycerin [Nitrostat] 0.4 mg Tablet, Sublingual 0.4 mg Sublingual UD RF: 0 finasteride 5 mg tablet 5 mg PO HS RF: 0 loratadine 10 mg Tablet 10 mg PO DAILY PRN (Reason: Allergy Symptoms) RF: 0 rosuvastatin 20 mg tablet 20 mg PO Q2D RF: 0 metoprolol tartrate 25 mg tablet 25 mg PO BID RF: 0 cholecalciferol (vitamin D3) [Vitamin D3] 2,000 unit Tablet 2,000 unit PO QAM RF: 0 Stand-Alone Forms: [facility] Discharge Orders: Discharge Order (Routine); Ordered 07/08/18 Ordered By: Beverly Patterson Admission Data Admit Date/Time: 07/07/18 17:25 Attending Provider: Jessica Ozuna Admit Provider: Jessica Ozuna Primary Care Provider: Debbie Camrona Other Providers: Jessica Ozuna ; Blaze Mercedes ; Sunday Hawkins ; Benoit Fatima ; Eleazar Kam ; Rj Stock Jr ; Jaime Schumacher ; Carmen Silva ; Shelley Kirby ; Nima Friedman ; Nima Sage ; Jose Barahona ; Janusz Easley ; Nakita Diop ; Geno Perez Service: Telemetry
--- NOTE | 2018-07-08 15:37 | XRay Report ---
XR cervical spine 2 or 3V CLINICAL HISTORY: 62 years-old Male presenting with left arm numbness . TECHNIQUE: Lateral, frontal, open-mouth odontoid, and swimmer's views of the cervical spine were obta ined. COMPARISON: Correlation made to MR from 06/25/2017. FINDINGS: Normal cervical lordosis. The C7 vertebral body is suboptimally visualized. Allowing for this, verteb ral bodies maintain normal height and alignment. Intervertebral disc heights are largely preserved th ough there is mild height loss at C5-6 and C6-7, where there are small disc osteophyte complexes. No significant posterior bony spurring. No radiographic evidence of fracture or subluxation. Normal pred ental interval. No prevertebral soft tissue swelling. Lateral masses of C1 articulate normally with C 2. The dens is grossly intact. IMPRESSION: Mild degenerative changes at C5-6 and C6-7. No radiographic evidence of acute osseous injury of the c ervical spine. Electronically signed by: Hasn Mathew M.D. 07/08/2018 3:36 PM
== END 2018-07-08 16:45 | disposition home or self-care (01) ==
LOC: 2N 12:48 → ED 12:48 → 2N 18:30